=== PATIENT | male | born 1990 | race Caucasian/White ===

== ENCOUNTER 2017-01-20 15:02 | Day surgery (SDC) | payer OTHER ==
[2017-01-20] VITALS (8 sets, daily range): BP systolic 119–140; BP diastolic 77–93; PULSE 82–104; RESP 11–20
[~2017-01-20] VITALS: Ht 188 cm; Wt 55.5 kg
[2017-01-20] MEDS ORDERED: SAN30GM TOP (15:08)
[2017-01-20] MEDS ORDERED: MUPI15CR9 TOP (15:08)
[2017-01-20] MEDS ORDERED: LEVE10006 GTB (15:09)
[2017-01-20] MEDS ORDERED: FAMO20TA18 GTB (15:10)
[2017-01-20] MEDS ORDERED: CLON1TAB3 GTB (15:10)
[2017-01-20] MEDS ORDERED: NYST1000 MT (15:12)
[2017-01-20] MEDS ORDERED: OMEG-135 PO (15:13)
[2017-01-20] MEDS ORDERED: ONDA4SOL IV* (15:14)
[2017-01-20] MEDS ORDERED: VALP500V5 GTB (15:18)
[2017-01-20] MEDS ORDERED: LORA1TAB IV* (15:19)
[2017-01-20] MEDS ORDERED: ACET-2047 GTB (15:20)
[2017-01-20] MEDS ORDERED: LABE5VIA IV (15:23)
[2017-01-20] MEDS ORDERED: HEPA500021 IJ (15:24)
[2017-01-20] MEDS ORDERED: MINE3.5O31 BOTH EYES (15:24)
[2017-01-20] MEDS ORDERED: MIDAZOLAM 1 MG/ML 2 ML INJ ONE (16:52)
[2017-01-20] MEDS ORDERED: PROPOFOL 20 ML ONE (16:52)
--- NOTE | 2017-01-20 17:12 | OPPN ---
Date/Time of Note Date/Time of Note DATE: 01/20/17 TIME: 17:11 Proc Note GI Procedure Date 01/20/17 Indication: treatment Pre-procedure Diagnosis Buried bumper syndrome Post-procedure Diagnosis Placement of a PEG through the same opening Procedure Performed: Endoscopy Surgeon see signature line Ehs Teacher none Anesthesia Type: MAC Tourniquet Time none EBL none Transfusion required none Biopsy 1: None Grafts/Implants none Tubes/Drains none Complication(s) none Disposition: PACU Procedure Description Dictated GIOVANI KINGSTON MD Jan 20, 2017 17:12
--- NOTE | 2017-01-20 20:55 | GILP ---
DATE OF PROCEDURE: PROCEDURE: Removal of the G-tube which was buried in the subcutaneous tissue and placement of a new G-tube through the same opening. INDICATION: A 26-year-old male with anoxic encephalopathy, had a G-tube in the subcutaneous tissue. Purpose of this procedure is to document it endoscopically and place a new G-tube hopefully throug h the same opening. INFORMED CONSENT: The risks of the procedure, related and unrelated complications, anesthetic risks , alternatives discussed. Informed consent was obtained. DESCRIPTION OF PROCEDURE: Patient was brought to the GI lab, placed in the supine position. Pediat jaleel mouthpiece was used and scope was passed through that into the esophagus, advanced further down into stomach and duodenum. There was no evidence of obstruction, no G-tube internal bumper was iden tified. At this point, I cut the stalk into 1/3 and through the opening of the stalk, passed the bl ue string and manipulated in different directions until it found its way into the stomach. Pictures were taken documenting that the bumper of the G-tube was in the subcutaneous tissue. The string wa s then snared, we transendoscopically passed it and pulled out through the mouth. The whole procedu re was completed by modified Ponsky's technique while pulling the string from outside, also the old G-tube with its bumper, along with the stalk of the new G-tube came out. The external bumper was th en anchored. The patient was rescoped, the position of the internal bumper confirmed, no immediate complication identified and tolerated the procedure very well. IMPRESSION: 1. The G-tube which was buried in the subcutaneous tissue not visualized endoscopically, was succes sfully removed. 2. New G-tube was placed through the same opening. PLAN: Resume feeding through the G-tube. Abdominal binder all the time. Dictated By: GIOVANI CALLE/RANDY Conf#: [id number] DID#: [id number] CC: KASSY DEE DO;*EndCC*
== END 2017-01-20 18:15 | disposition home or self-care (01) ==
LOC: GIL 15:02
PROVIDERS: ATTEND Internal Medicine Gastroenterology
DX: Z43.1 Encounter for attention to gastrostomy (principal); I10 Essential (primary) hypertension; G92 Toxic encephalopathy; Z85.47 Personal history of malignant neoplasm of testis
CPT/HCPCS: 43760; J2250